=== PATIENT | female | born 1990 | race Caucasian/White ===

== ENCOUNTER 2016-04-08 18:57 | Emergency (ER) | payer OTHER ==
[~2016-04-08] VITALS: Ht 149.9 cm; Wt 72.3 kg
[2016-04-08 19:26] VITALS: BP 121/71; TEMP 36.9; Ht 149.9 cm; Wt 72.3 kg
[2016-04-08] MEDS ORDERED: ACET-1256 PO (19:41)
[2016-04-08] MEDS ORDERED: PRENTAB26 PO (19:41)
[2016-04-08] MEDS ORDERED: CEPH500C2 PO (20:11)
[2016-04-08] MEDS ORDERED: OXYC-57 PO (20:11)
--- NOTE | 2016-04-08 20:14 | EMERGENCY ROOM VISIT NOTE ---
ED Visit Note First contact with patient: 19:35 CHIEF COMPLAINT: Left upper dental pain 1 month HISTORY OF PRESENT ILLNESS: Patient is a 38 week 25-year-old white female who presents to the emergency department for evaluation of intractable left upper dental pain. She has a broken molar. His been giving her difficulty for about a month. She was seen by the dentist twice, and they were reluctant to pull it due to her . They treated her with amoxicillin twice a day for total of 14 days of antibiotic therapy. She states they will pull the tooth when she delivers. She states that it was "badly infected." She has been using acetaminophen for her pain, which helps until it wears off. She denies any drainage or discharge from the tooth at the present time. She states the pain radiates to her jaw and into her ear. She rates it a throbbing 10/10. She is a smoker. Denies facial swelling or fever. REVIEW OF SYSTEMS: Review of systems as per HPI. All other systems reviewed were negative. At least 6 systems reviewed. PMH: Electronic medical records are reviewed and summarized as above/below. See Problem List. SOCIAL HISTORY: Patient lives at home with family. Employed. She does smoke. PHYSICAL EXAM: Vital Signs: Reviewed Nurse's notes. CONSTITUTIONAL: Patient is a well-appearing gravid 25-year-old white female who is awake and alert and in no acute distress. Vital signs are stable. EARS: Tympanic membranes intact, not inflamed, have normal contour. External canals clear. MOUTH: Overall the patient has good dentition. The left upper molar in question has an obvious cavity, and is tender to percussion. There is slight swelling along the gumline although no focal abscess. Mucous membranes moist, no lesions, tongue and gums appear normal. THROAT: No pharyngeal injection, exudates, or tonsillar hypertrophy. Airway is patent. No trismus noted. FACE: No facial swelling is appreciated. No cellulitic changes. NECK: No lymphadenopathy. ED course: The patient was seen and assessed as above. Her old records are reviewed. Patient was reviewed in the [facility] Prescription Drug Monitoring Program, and there were no red flags noted. She has a molar which requires excision, however cannot be performed due to her advanced . She has an obvious cavity, she does not have any evidence for drainable abscess along the gumline, no facial cellulitis or evidence for Rudolph's angina. She was placed on a course of Keflex and was given Percocet to use for pain. She was advised that Percocet is category B, and a small amount of the medication could cross the placenta to the developing fetus. She understood the risks, and alternatives. She also was advised to not use more than a total of 3 g of acetaminophen in a 24 hour time period, including regular acetaminophen and the Percocet. Follow-up with OB and the dentist as scheduled. Problem List Medical Problems: (1) Cervical lymphadenopathy Status: Resolved (2) History of ear infections Status: Resolved Current/Historical Medications Scheduled Cephalexin Monohydrate (Keflex), 500 MG PO QID Multivit/Min/Iron/Fol Ac/Pren ( Vitamin), 1 TAB PO QPM Scheduled PRN Acetaminophen (Tylenol), 1,000 MG PO Q6 PRN for Pain Oxycodone/Acetaminophen 5MG/325MG (Percocet 5MG/325MG), 1-2 TABS PO Q4 PRN for Pain Allergies Coded Allergies: No Known Allergies (Unverified , 04/08/16) Vital Signs Date Time Temp Pulse Resp B/P Pulse Ox O2 Delivery O2 Flow Rate FiO2 04/08/16 20:35 82 18 98 Room Air 04/08/16 19:26 36.9 79 18 121/71 98 Room Air Medications Administered Medications (Trade) Dose Ordered Sig/Speedy Route Start Time Stop Time Status Last Admin Dose Admin Cephalexin Monohydrate (Keflex 500MG Home Pack) 1 homepack NOW ONCE PO 04/08/16 20:15 04/08/16 20:16 DC 04/08/16 20:34 1 HOMEPACK Oxycodone/ Acetaminophen (Percocet 5/ 325MG Home Pack) 1 homepack UD ONCE PO 04/08/16 20:15 04/08/16 20:16 DC 04/08/16 20:34 1 HOMEPACK Departure Information Impression Primary Impression: Periapical abscess Prescriptions Oxycodone/Acetaminophen 5MG/325MG (PERCOCET 5MG/325MG) Tab 1-2 TABS PO Q4 Y for Pain, #25 TAB For Initial Treatment Prov: Emily Connelly,PA 04/08/16 Cephalexin Monohydrate (KEFLEX) 500 Mg Cap 500 MG PO QID, #40 CAP Prov: Emily Connelly PA 04/08/16 Referrals No Doctor, Assigned (PCP) Patient Instructions A Signature Page, My [facility] Additional Instructions Percocet 5/325 mg: Take 1-2 pills every four hours for breakthrough pain. Avoid alcohol, operating machinery or dangerous equipment, working on ladders or roofs, DRIVING, or situations where being under the influence may be dangerous. It is recommended to use an [id number] stool softener such as Colace, 100mg twice daily while taking this medication to avoid constipation. Acetaminophen(Tylenol) may be used for fever or pain. Use 1000mg every six hours as needed. Do Not Exceed More Than 3000 Mg of Acetaminophen in 24 Hours. Cephalexin(Keflex) 500mg: Take one pill four times daily for 10 days for your dental infection. All antibiotics can cause diarrhea. If this occurs and you feel worse or it does not resolve in 1-2 days follow up with your doctor or return to the Emergency Department as this could be signs of serious underlying problems. Any medication can cause an allergic reaction, stop the pills immediately and return to the ER for rash, hives, breathing difficulties, or swelling. Saltwater gargles after meals and before bedtime. Soft foods. Followup with your dentist for definitive management. You may also follow up with your primary care physician for pain/care management until you can be seen by your dentist.
[2016-04-08] MEDS ORDERED: CEPHALEXIN 500MG HOME PACK 1 EA BTL PO ONE (20:15)
[2016-04-08] MEDS ORDERED: PERCOCET HOME PACK PO ONE (20:15)
[2016-04-08 20:35] VITALS: PULSE 82; O2SAT 98
== END 2016-04-08 20:35 | disposition home or self-care (01) ==
LOC: C.EDB 18:59 → C.EDD 20:35
DX: K04.7 Periapical abscess without sinus (principal); F17.210 Nicotine dependence, cigarettes, uncomplicated

== ENCOUNTER 2016-04-23 02:02 | Inpatient (IN) | payer OTHER ==
[~2016-04-23] VITALS: Ht 149.9 cm; Wt 70.9 kg
[~2016-04-23 02:02] MED LIST: ACET-1256 PO; CEPH500C2 PO; OXYC-57 PO; PRENTAB26 PO
[2016-04-23] MEDS ORDERED: IV FLUIDS COMPLETED PRN (03:30)
[2016-04-23] MEDS ORDERED: PRENTAB26 PO (04:44)
[2016-04-23 04:45] VITALS: Ht 149.9 cm; Wt 70.9 kg
[2016-04-23] MEDS ORDERED: LACTATED RINGER'S 1000ML 500 ML IV PRN ×2 (06:42→08:49)
[2016-04-23] MEDS ORDERED: LACTATED RINGER'S 1000ML 1,000 ML IV PRN (06:42)
[2016-04-23] MEDS ORDERED: OXYTOCIN 30 UNITS/500ML NSS IV PRN ×2 (06:45→12:00)
[2016-04-23 07:07] LABS: HEMATOCRIT 35.1 % (37-47); MEAN CELL VOLUME 94.6 fL (80-100); MEAN CORPUSCULAR HEMOGLOBIN 32.3 pg (25-34); MEAN CORPUSCULAR HGB CONC 34.2 g/dl (32-36); MEAN PLATELET VOLUME 9.8 fL (7.4-10.4); PLATELET COUNT 256 K/uL (130-400); RED BLOOD COUNT 3.71 M/uL (4.2-5.4); WHITE BLOOD COUNT 11.53 K/uL (4.8-10.8)
[2016-04-23] MEDS: LACTATED RINGER'S 1000ML 1,000 ML IV SCH ×2 (07:08→10:03)
[2016-04-23] MEDS ORDERED: RANI150T3 PO (07:39)
[2016-04-23] MEDS ORDERED: BUPIVACAINE 0.25% 30 ML VIAL ONE (08:03)
[2016-04-23] MEDS ORDERED: FENTANYL CITRATE INJ 50 MCG/1 ML 2 ML VIAL ONE (08:04)
[2016-04-23] MEDS ORDERED: EpHEDrine SULFATE INJ 50 MG/ML AMP ONE (08:04)
[2016-04-23] MEDS ORDERED: FENTANYL 2MCG/ML ROPIV 1.25MG/ML 100ML BAG EPI ONE (08:04)
--- NOTE | 2016-04-23 08:28 | Medical Student: [facility] ---
Med Student History & Physical Date of Service Apr 23, 2016. Chief Complaint Labor Check History of Present Illness Source: patient, clinic records This is 25 year-old female with GA 40 weeks 4 days presented this morning with frequent contractions every 3-5 minutes and lots of vaginal mucous discharge with streak of blood. movement is present. Pain (9/10) is associated with contractions. On exam, she is 4/80/-1. Her course of is uncomplicated so far. She is A+, GBS-, Rubella immune. She is a smoker. ROS: negative for MARTIN, fever, chills, SOB, chest pain, +heartburn OB History One uncomplicated vaginal delivery - [address] History LMP 07/17/2015 Menstrual cycle q 25 days Menarche 16yo Last pap 2012 - WNL Past Medical History Anemia with Chicken pox+ Yeast infection Past Surgical History Tonsillectomy and adenoidectomy Family History Fx of diabetes, HTN, high cholesterol Mother - labor, ovarian cysts. Social History Patient is single. She is a smoker. Denies drinking or illicit drug use. Smoking Status: Current Every Day Smoker Smokeless Tobacco Use: No Alcohol Use: none Drug Use: none Marital Status: single, in relationship Housing status: lives with family Occupational Status: unemployed Allergies Coded Allergies: No Known Allergies (Unverified , 04/23/16) Home Medications Multivit/Min/Iron/Fol Ac/Pren ( Vitamin), 1 TAB PO QPM Ranitidine Hcl (Zantac), 1 TAB PO BID Review of Systems Constitutional: No chills, No fever ENT: No hearing loss Respiratory: No cough, No shortness of breath Cardiovascular: No chest pain Abdomen: No nausea, No pain Genitourinary - Female: + vaginal bleeding, + vaginal discharge Neurologic: No memory loss Physical Exam General Appearance: WD/WN Head: normocephalic Eyes: normal inspection ENT: hearing grossly normal Neck: no adenopathy Respiratory/Chest: lungs clear, normal breath sounds, no respiratory distress Cardiovascular: regular rate, rhythm, no murmur Abdomen / GI: + pertinent finding (see HPI) Genitourinary - Female: + pertinent finding (see HPI) Extremities: no pedal edema Neurologic/Psych: alert, oriented x 3 Skin: no rash Lymphatic: no adenopathy Monitoring External Monitor: 8:00AM - HR 140s, moderate variabilities, accelerations Tocodynamometer: TOCO 7 Laboratory Results 04/23/16 06:58 Test 04/23/16 06:58 Red Blood Count 3.71 M/uL (4.2-5.4) Mean Corpuscular Volume 94.6 fL (80-100) Mean Corpuscular Hemoglobin 32.3 pg (25-34) Mean Corpuscular Hemoglobin Concent 34.2 g/dl (32-36) RDW Standard Deviation 46.9 fL (36.4-46.3) RDW Coefficient of Variation 13.6 % (11.5-14.5) Mean Platelet Volume 9.8 fL (7.4-10.4) Assessment and Plan 25 year-old female is in labor with frequent contractions q3-5min and vaginal discharge. Cervix exam at ~6:45AM shows 4/80/-1 Smoker during Blood type A+, GBS-, Rubella immune Labs - WNL for Plan Artificial ROM Pitocin given Pain - epidural anesthesia placement Continue monitor patient's vitals and assessment.
[2016-04-23] MEDS ORDERED: ONDANSETRON INJ 2 MG/ML 2 ML VIAL IV PRN (09:00)
[2016-04-23] MEDS ORDERED: NALBUPHINE HCL INJ 10 MG/ML AMP IV PRN (09:00)
[2016-04-23] MEDS ORDERED: NALOXONE HCL INJ 0.4 MG/1 ML VIAL/CARP IV PRN (09:00)
[2016-04-23] MEDS ORDERED: FENTANYL 2MCG/ML ROPIV 1.25MG/ML 100ML BAG EPI PRN (09:00)
[2016-04-23] MEDS ORDERED: DiphenhydrAMINE HCL 50 MG/ML VIAL IV PRN (09:00)
[2016-04-23] MEDS ORDERED: EpHEDrine SULFATE INJ 50 MG/ML AMP IV PRN (09:00)
[2016-04-23] MEDS ORDERED: RANITIDINE HCL 150 MG TAB PO ONE (09:15)
--- NOTE | 2016-04-23 09:15 | Medical Student: [facility] ---
Med Student Progress Note Date of Service Apr 23, 2016. Subjective Pt evaluation today including: conversation w/ patient Pain: no pain with epidural PO Intake: clear fluid/ice chips Voiding: no voiding problems Caridad Rowland is 25-year-old female GA of 40weeks-4days is currently in labor. She has no pain after the epidural. Exam done by Dr. Kendrick shows 5/100/- 2. Review of Systems Constitutional: No chills, No fever Respiratory: No cough, No shortness of breath Cardiac: + problem reported (heartburn), No chest pain Abdomen: No nausea, No pain Female : + vaginal discharge Objective Physical Exam General Appearance: WD/WN, no apparent distress ENT: hearing grossly normal Comments: Cervix exam done by Dr. Kendrick: 5/100/-2 Laboratory Results Last 24 Hours Test 04/23/16 06:58 White Blood Count 11.53 K/uL Red Blood Count 3.71 M/uL Hemoglobin 12.0 g/dL Hematocrit 35.1 % Mean Corpuscular Volume 94.6 fL Mean Corpuscular Hemoglobin 32.3 pg Mean Corpuscular Hemoglobin Concent 34.2 g/dl RDW Standard Deviation 46.9 fL RDW Coefficient of Variation 13.6 % Platelet Count 256 K/uL Mean Platelet Volume 9.8 fL Medications Current Inpatient Medications Medications (Trade) Dose Ordered Sig/Speedy Route Start Time Stop Time Status Last Admin Dose Admin Miscellaneous 1 ea 1 ea PRN PRN N/A 04/23/16 03:30 04/23/17 03:29 Lactated Ringer's 1,000 ml @ 125 mls/hr Q8H IV 04/23/16 06:42 04/25/16 06:41 04/23/16 07:08 125 MLS/HR Lactated Ringer's (Lr 1000ml) 1,000 ml @ 999 mls/hr Q1H1M PRN IV 04/23/16 06:42 05/23/16 06:41 Oxytocin 30 units 30 units UD PRN IV 04/23/16 06:45 05/23/16 06:44 04/23/16 07:10 30 UNITS Lactated Ringer's (Lr 1000ml) 500 ml @ 999 mls/hr Q31M PRN IV 04/23/16 06:42 05/23/16 06:41 Fentanyl/ Ropivacaine (Fentanyl 2MCG/ Ml/Ropivacaine 1.25MG/ML) 100 ml PRN PRN EPI 04/23/16 09:00 04/24/16 08:59 UNV Naloxone HCl 0.1 mg 0.1 mg UD PRN IV 04/23/16 09:00 04/24/16 08:59 UNV Lactated Ringer's (Lr 1000ml) 500 ml @ 999 mls/hr Q31M PRN IV 04/23/16 08:49 04/24/16 08:48 UNV Ephedrine Sulfate (EpHEDrine SULFATE INJ) 10 mg Q5M PRN IV 04/23/16 09:00 04/24/16 08:59 UNV Diphenhydramine HCl (Benadryl Inj) 25 mg Q6H PRN IV 04/23/16 09:00 04/24/16 08:59 UNV Nalbuphine HCl (Nubain Inj) 5 mg Q10M PRN IV 04/23/16 09:00 04/24/16 08:59 UNV Ondansetron HCl (Zofran Inj) 4 mg Q6H PRN IV 04/23/16 09:00 04/24/16 08:59 UNV Assessment and Plan Assessment and Plan: 25-year-old female GA 40weeks-4 days in labor assessment - FHR 140s, moderate variabilities, acceleration 15x15 - Category 1 - Reactive TOCO: 50s Plan Epidural placed Pitocin given Give Zantec for heartburn Continue monitor patient's vital signs and assessment Continued [facility] stay due to: other (Labor check)
[2016-04-23] MEDS ORDERED: SUPERCREAM 0.870 % 15GM JAR EXT PRN (12:00)
[2016-04-23] MEDS ORDERED: LANOLIN OINT EXT PRN ×2 (12:00)
[2016-04-23] MEDS ORDERED: ACETAMINOPHEN 325 MG TAB PO PRN (12:00)
[2016-04-23] MEDS ORDERED: ACETAMINOPHEN/CODEINE 300/30MG TAB PO PRN ×2 (12:00)
[2016-04-23] MEDS ORDERED: BENZOCAINE 20% AER SPR 82.5 GM CAN EXT PRN (12:00)
--- NOTE | 2016-04-23 12:06 | DELIVERY SUMMARY ---
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 Membranes were ruptured at 4 cm dilated for clear fluid. She received epidural analgesia and Pitocin augmentation of labor. She progressed to full dilation and +3 station. She pushed effectively through two contractions for delivery of a viable male . Mouth and nasopharynx were suctioned on the perineum. The rest of the infant delivered without difficulty and was placed on the mother's abdomen for further stimulation and attention. There was vigorous crying and the was moving all four limbs. The cord was clamped and cut. Cord blood was obtained. Placenta was expressed intact with a 3-vessel cord. There were superficial bilateral labial abrasions that were not bleeding and therefore not repaired. Estimated blood loss was 300 cc. Mother and were doing well after delivery. I attest to the content of the Intraoperative Record and any orders documented therein. Any exceptions are noted below. AURELIAD
--- NOTE | 2016-04-23 12:44 | Medical Student: [facility] ---
Medical Student Delivery Note Vaginal Delivery Note 1. at 40 weeks and 4 days 2. Blood type A+, GBS-, Rubella immune Procedure: 1. Spontaneous Vaginal Delivery Surgeon: Dr. Kendrick Member Services Representative: Negar Waddell [facility] EBL: 300mL Description: This is 25 year-old female presented to L&D early this morning with frequent contractions and mucous plug discharge. Membrane was artificially ruptured this morning by Dr. Hernández at 4+/10/-2. She received Pitocin augmentation of the uterus and epidural analgesia. Patient went to sleep and woke up a few hours later feeling the baby is coming out. The fetus presented right occipital posterior. Patient successfully delivered viable male with three contractions. Mouth and nasopharynx suction of the was done and the rest of the 's body was delivered without difficulty. Umbilical cord was clamped and cut by baby's father. Baby was then put on mother's abdomen for stimulation. Cord blood was obtained and sent for assessment. Placenta was delivered intact with 3 vessels. There were some mild labial abrasions. No lacerations were noted. Baby was attended by Pediatric team and handed back to mom for . Both mother and baby were doing well.
--- NOTE | 2016-04-23 13:10 | Anesthesia Procedure Note ---
Anesthesia Epidural Removal Nt Date & Time Apr 23, 2016 at 13:09 Vital Signs Pain Intensity: 0.0 Notes Mental Status: alert / awake / arousable, participated in evaluation Nausea / Vomiting: adequately controlled Pain: adequately controlled Airway Patency, RR, SpO2: stable & adequate BP & HR: stable & adequate Hydration State: stable & adequate Neuraxial Anesthesia: was administered, sensory block is resolved Anesthetic Complications: no major complications apparent, pt satisfied with anesthetic care Epidural: removed without complications, with tip intact
[2016-04-23 15:20] VITALS: BP 121/69; PULSE 93; TEMP 37.5
[2016-04-23] MEDS: IBUPROFEN 600 MG TAB PO PRN ×2 (16:21→21:29)
[2016-04-23 19:55] VITALS: BP 101/53; PULSE 79; TEMP 36.6
[2016-04-23] MEDS ORDERED: RANITIDINE HCL 150 MG TAB PO SCH (20:00)
[2016-04-23] MEDS: DOCUSATE SODIUM 100 MG CAP PO SCH (20:00)
[2016-04-23 23:15] VITALS: BP 114/61; PULSE 64; TEMP 37
[2016-04-24] MEDS: IBUPROFEN 600 MG TAB PO PRN ×3 (01:45→14:39)
[2016-04-24 04:03] VITALS: BP 92/49; PULSE 60; TEMP 36.6
[2016-04-24 06:32] LABS: HEMATOCRIT 35.3 % (37-47)
--- NOTE | 2016-04-24 06:36 | Progress Note ---
Subjective Apr 24, 2016. Subjective conversation w/ patient, physical exam Ambulation: ambulating normally Voiding: no voiding problems Passing Gas: Yes Diet Tolerance: Regular Diet Lochia: Small Feeding Type: Breast Feeding Pain: No pain reported Review of Systems Constitutional: No chills, No fever Respiratory: No cough, No shortness of breath Cardiac: No chest pain Breast: No breast pain Abdomen: No nausea, No pain, No vomiting Female : No dysuria Objective Vital Signs Date Time Temp Pulse Resp B/P Pulse Ox O2 Delivery O2 Flow Rate FiO2 04/24/16 04:03 36.6 60 18 92/49 Room Air 04/23/16 23:15 Room Air 04/23/16 23:15 37.0 64 18 114/61 Room Air 04/23/16 19:55 36.6 79 18 101/53 Room Air 04/23/16 15:20 37.5 93 16 121/69 Physical Exam General Appearance: WELL-APPEARING, WD/WN, NO APPARENT DISTRESS Respiratory/Chest: lungs clear, normal breath sounds Cardiovascular: regular rate, rhythm, no gallop, no murmur Abdomen: non tender, soft Fundus: Firm, Relation to Umbilicus (1cm below) Extremities: no calf tenderness Laboratory Results Last 24 Hours Test 04/23/16 06:58 04/24/16 06:05 White Blood Count 11.53 K/uL Red Blood Count 3.71 M/uL Hemoglobin 12.0 g/dL 11.8 g/dL Hematocrit 35.1 % 35.3 % Mean Corpuscular Volume 94.6 fL Mean Corpuscular Hemoglobin 32.3 pg Mean Corpuscular Hemoglobin Concent 34.2 g/dl RDW Standard Deviation 46.9 fL RDW Coefficient of Variation 13.6 % Platelet Count 256 K/uL Mean Platelet Volume 9.8 fL Medications Current Inpatient Medications Medications (Trade) Dose Ordered Sig/Speedy Route Start Time Stop Time Status Last Admin Dose Admin Miscellaneous (Iv Fluids Completed) 1 ea PRN PRN N/A 04/23/16 03:30 04/23/17 03:29 Ranitidine HCl (zANTac TAB) 150 mg BID PO 04/23/16 20:00 05/23/16 19:59 Oxytocin (Pitocin IV) 30 units UD PRN IV 04/23/16 12:00 05/23/16 11:59 Benzocaine (Dermoplast Aero Spr) 1 appln PRN PRN EXT 04/23/16 12:00 05/23/16 11:59 Cocaine HCl (Supercream 0.870% Cr) BID PRN EXT 04/23/16 12:00 05/07/16 11:59 Lanolin (Lanolin Oint) PRN PRN EXT 04/23/16 12:00 05/23/16 11:59 Prenat Multivit/ [place]/Iron/Folic Ac ( Vitamin Tab) 1 tab DAILY PO 04/24/16 08:00 05/24/16 07:59 Ibuprofen (Motrin Tab) 600 mg Q4H PRN PO 04/23/16 12:00 05/23/16 11:59 04/24/16 05:28 600 MG Acetaminophen (Tylenol Tab) 650 mg Q6H PRN PO 04/23/16 12:00 05/23/16 11:59 04/23/16 23:13 650 MG Acetaminophen/ Codeine Phosphate (Tylenol w/ Codeine #3 Tab) 1 tab Q4H PRN PO 04/23/16 12:00 05/23/16 11:59 Acetaminophen/ Codeine Phosphate (Tylenol w/ Codeine #3 Tab) 2 tab Q4H PRN PO 04/23/16 12:00 05/23/16 11:59 Bisacodyl (Dulcolax Tab) 5 mg 20 PO 04/24/16 20:00 04/24/16 20:01 Docusate Sodium (coLACE CAP) 100 mg BID PO 04/23/16 20:00 05/23/16 19:59 04/23/16 20:00 100 MG Assessment and Plan Problem List Medical Problems: (1) Lymphadenopathy of right cervical region Status: Acute (2) Periapical abscess Status: Acute Post- Day#: 1 Continue Routine Care: Resident Physician Supervision Note: I interviewed and examined the patient. Discussed with Dr. Spencer and agree with findings and plan as documented in the note. Any exceptions or clarifications are listed here: [None] Documented By: Margie Kendrick - Vital Signs reviewed and WNL (temp max 36.6) - Blood Type: A+, GBS- , Rubella Immune - Patient doing well clinically - Encourage Ambulation today - No pain reported this morning - Tolerating PO Diet Well - Discharge today
--- NOTE | 2016-04-24 06:36 | Medical Student: [facility] ---
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 Subjective conversation w/ patient, physical exam, lab review Ambulation: ambulating normally Voiding: no voiding problems Passing Gas: Yes Diet Tolerance: Regular Diet Lochia: Small Feeding Type: Breast Feeding Pain: cramping and contractions in lower abdomen Review of Systems Constitutional: No chills, No fever Respiratory: No shortness of breath Cardiac: No chest pain Abdomen: + pain Female : + see HPI Objective Vital Signs Date Time Temp Pulse Resp B/P Pulse Ox O2 Delivery O2 Flow Rate FiO2 04/24/16 04:03 36.6 60 18 92/49 Room Air 04/23/16 23:15 Room Air 04/23/16 23:15 37.0 64 18 114/61 Room Air 04/23/16 19:55 36.6 79 18 101/53 Room Air 04/23/16 15:20 37.5 93 16 121/69 Physical Exam General Appearance: WELL-APPEARING, NO APPARENT DISTRESS Respiratory/Chest: lungs clear, normal breath sounds Cardiovascular: regular rate, rhythm, no murmur Abdomen: non tender, soft Fundus: Firm, Relation to Umbilicus (1cm below umbilicus) Extremities: normal range of motion, no calf tenderness Laboratory Results Last 24 Hours Test 04/23/16 06:58 04/24/16 06:05 White Blood Count 11.53 K/uL Red Blood Count 3.71 M/uL Hemoglobin 12.0 g/dL Hematocrit 35.1 % Mean Corpuscular Volume 94.6 fL Mean Corpuscular Hemoglobin 32.3 pg Mean Corpuscular Hemoglobin Concent 34.2 g/dl RDW Standard Deviation 46.9 fL RDW Coefficient of Variation 13.6 % Platelet Count 256 K/uL Mean Platelet Volume 9.8 fL Medications Current Inpatient Medications Medications (Trade) Dose Ordered Sig/Speedy Route Start Time Stop Time Status Last Admin Dose Admin Miscellaneous (Iv Fluids Completed) 1 ea PRN PRN N/A 04/23/16 03:30 04/23/17 03:29 Ranitidine HCl (zANTac TAB) 150 mg BID PO 04/23/16 20:00 05/23/16 19:59 Oxytocin (Pitocin IV) 30 units UD PRN IV 04/23/16 12:00 05/23/16 11:59 Benzocaine (Dermoplast Aero Spr) 1 appln PRN PRN EXT 04/23/16 12:00 05/23/16 11:59 Cocaine HCl (Supercream 0.870% Cr) BID PRN EXT 04/23/16 12:00 05/07/16 11:59 Lanolin (Lanolin Oint) PRN PRN EXT 04/23/16 12:00 05/23/16 11:59 Prenat Multivit/ [employer]/Iron/Folic Ac ( Vitamin Tab) 1 tab DAILY PO 04/24/16 08:00 05/24/16 07:59 Ibuprofen (Motrin Tab) 600 mg Q4H PRN PO 04/23/16 12:00 05/23/16 11:59 04/24/16 05:28 600 MG Acetaminophen (Tylenol Tab) 650 mg Q6H PRN PO 04/23/16 12:00 05/23/16 11:59 04/23/16 23:13 650 MG Acetaminophen/ Codeine Phosphate (Tylenol w/ Codeine #3 Tab) 1 tab Q4H PRN PO 04/23/16 12:00 05/23/16 11:59 Acetaminophen/ Codeine Phosphate (Tylenol w/ Codeine #3 Tab) 2 tab Q4H PRN PO 04/23/16 12:00 05/23/16 11:59 Bisacodyl (Dulcolax Tab) 5 mg 20 PO 04/24/16 20:00 04/24/16 20:01 Docusate Sodium (coLACE CAP) 100 mg BID PO 04/23/16 20:00 05/23/16 19:59 04/23/16 20:00 100 MG Assessment and Plan Post- Day Number: 1 Continue Routine Care: 25 year-old female delivered vaginally yesterday Blood type A+, GBS-, Rubella immune Vitals are stable. Still cramping/contraction pain and some back pain. Plan: Regular diet PO Encourage ambulation Discharge today
--- NOTE | 2016-04-24 06:37 | Discharge Instructions ---
Discharge Instructions Admission Reason for Admission: Labor Check Discharge Discharge Diagnosis / Problem: Vaginal Delivery Discharge Goals Goal(s): Routine recovery after surgery Medications Continue Dispensed Medications: supercream, dermaplast, tucks, lansinoh Activity Recommendations Activity Limitations: per Instructions/Follow-up section . Instructions / Follow-Up Instructions / Follow-Up ACTIVITY RECOMMENDATIONS: * Gradual return to full activity over the next 2-3 weeks. * No lifting - nothing heavier than baby over the next 2-3 weeks. * Do not engage in vigorous exercise, sexual activity or sports until cleared by your physician. * Do not drive or operate any motorized equipment until cleared by your physician. * You may shower/bathe daily. MEDICATIONS: For discomfort or pain, you may use Acetaminophen (Tylenol), Ibuprofen (Advil), or Naproxen (Aleve) following the package directions. For constipation you may use Colace following the package directions. BREAST CARE: If you are not breast feeding: * Wear a supportive bra 24 hours a day for one to two weeks. * Avoid stimulating your breasts and nipples as much as possible during the first few weeks after delivery. * When taking a shower, have the warm water hit your back, not breasts. * When your breasts feel full, apply ice packs. Usually three to four times a day helps ease the discomfort. * Take a mild pain medication (Tylenol / Motrin) when you are uncomfortable. If breast feeding: * Use breast milk to lubricate nipples. Lansinoh cream may be used for sore nipples. You do not need to remove cream prior to breast feeding. If using a different brand of cream, check the label for directions regarding removal of cream prior to nursing. * Wear a supportive bra. * If having problems with breasts or breast feeding, call a railroad design consultant or your health care provider. EPISIOTOMY CARE: After delivery, if you have an episiotomy (stitches), the following steps will ease discomfort and aid healing. * For the first 24 hours after delivery, place ice packs next to your episiotomy to help reduce swelling. * After the first 24 hour-period, sitz baths, either portable or in the tub, are suggested. A shower with a shower arm sprayed over the episiotomy may be comforting. * Guera care should be done after each voiding and bowel movement. Squirt warm water from a plastic bottle over the perineum (region of the body between the anus and urinary opening) and pat dry. * Use Dermoplast to ease discomfort. Shake container. [place] directly over the episiotomy. Place a Tucks on a clean sanitary pad next to your episiotomy. SPECIAL CARE INSTRUCTIONS: When you are discharged from the hospital, it is important for you to follow the instructions listed below: * During the first week at home, you should be able to care for yourself and your baby. In addition, the usual light household activities are encouraged. * Limit your activities to the way you feel. Do not try to clean the house or move furniture. Be sensible. * If you actively engage in sports and have done so up until the time of your delivery, you may resume these activities as soon as you feel able. This may take up to one month or even longer. Use good judgment. * Continue to take your vitamins for at least six weeks after the of your baby. * Your diet need not be limited unless you were on a special diet before your delivery. Breast-feeding mothers need around 2500 calories per day and at least 64-80 ounces of fluid per day (8 to 10 glasses). * You should eat foods from the four major food groups. Crash diets or fad diets are to be avoided. Eating lean meats, fresh fruits and vegetables, low-fat dairy products, high fiber foods and a regular exercise program, will help you get back to your pre- weight without putting your health at risk. * Constipation is sometimes a problem after delivery. Take a mild laxative as needed. If breast feeding, Milk of Magnesia is acceptable to use. You may use a suppository or Fleets enema if no episiotomy. * A daily shower or tub bath is suggested. Be sure to thoroughly and gently dry the perineum. * A bloody vaginal discharge will usually continue until around four weeks post . A small amount of bleeding may continue for as long as six weeks. Vaginal discharge changes from the bright red bleeding after delivery to pink then brownish and finally yellowish-pink before becoming white and disappearing. * Bleeding may increase with activity. Your first period may come in 4-8 weeks. If you are breast feeding, your period may be delayed even longer. * [place] (sex) can begin whenever both you and your partner feel comfortable and do not have any form of genital infection. It is recommended that you wait at least six weeks for internal and external healing to occur. If you have questions, please talk to your health care practitioner. A condom should be used to prevent infection and . * Foreplay, gentle intercourse and lubrication is very important the first several times to prevent pain. A water-based lubricant such as K-Y jelly or Astroglide may be used. * If you have RH negative blood and your baby is RH positive, you will receive RHOGAM by injection prior to discharge. The nurse will give you a card to keep with you that has the date and place that you received RHOGAM after delivery. * During your care, you had a Rubella screen done to check for the presence of rubella antibodies in your blood. If your test was negative, you will receive a Rubella vaccine prior to discharge. This vaccine may cause a fever, soreness at the injection site and flu-like symptoms. If these symptoms persist, notify your health care practitioner. is not advised for one month after a Rubella vaccine. * Verbalizes understanding of car seat law as reviewed with patient nursing. * Car Seat hand-out given and reviewed with patient by nursing. * Shaken baby information reviewed with patient by nursing. Call you doctor if: * Heavy bleeding (saturating several pads an hour) or passing clots the size of your fist. * A fever >101 degrees F (38.3 degrees C) on two occasions four hours apart and /or chills. * Unusual pain in the pelvic or vaginal areas. * "Baby Blues" lasting longer than two weeks. If you have any questions or concerns, call your health care practitioner at . FOLLOW UP VISIT: * Please call the office at to schedule a 6 week examination. It is important you keep this appointment. It is important for you to make arrangements for either yearly or twice yearly check-ups thereafter. Current Hospital Diet Patient's current hospital diet: Regular OB Diet Discharge Diet Recommended Diet: Regular Diet Pending Studies Studies pending at discharge: no Medical Emergencies . Who to Call and When: Medical Emergencies: If at any time you feel your situation is an emergency, please call 911 immediately. . Non-Emergent Contact Non-Emergency issues call your: Cyl[employer] Machine Operator . . "Provider Documentation" section prepared by Michael Spencer. VTE Core Measure Inpt VTE Proph given/why not?: Treatment not indicated
[2016-04-24 07:35] VITALS: BP 105/68; PULSE 75; TEMP 36.4; O2SAT 98
[2016-04-24] MEDS ORDERED: PRENATAL VITAMIN TAB PO SCH (08:00)
[2016-04-24] MEDS: DOCUSATE SODIUM 100 MG CAP PO SCH (09:01)
[2016-04-24 16:00] VITALS: BP 107/64; PULSE 62; TEMP 36.7
[2016-04-24 17:16] VITALS: BP_DIAS 64; PULSE 62; TEMP 36.7
[2016-04-24] MEDS ORDERED: BISACODYL 5 MG TABEC PO SCH (20:00)
== END 2016-04-24 19:30 | disposition home or self-care (01) | DRG 775 ==
LOC: C.OPB 02:02 → C.LD 02:02 → C.OPB 03:08 → OBSVTOIN 06:43 → C.OBG 16:00
PROVIDERS: ADMIT Obstetrics & Gynecology; ATTEND Obstetrics & Gynecology
PROC: 10E0XZZ Delivery of Products of Conception, External Approach (ICD-10-PCS; principal; 2016-04-23)
PROC: 10907ZC Drainage of Amniotic Fluid, Therapeutic from Products of Conception, Via Natural or Artificial Opening (ICD-10-PCS; 2016-04-23)
DX: O48.0 Post-term pregnancy (principal); Z37.0 Single live birth; O99.02 Anemia complicating childbirth; Z3A.40 40 weeks gestation of pregnancy; O71.89 Other specified obstetric trauma; Z83.3 Family history of diabetes mellitus; Z82.49 Family history of ischemic heart disease and other diseases of the circulatory system; Z84.89 Family history of other specified conditions; Z83.49 Family history of other endocrine, nutritional and metabolic diseases

== ENCOUNTER → 2017-02-22 | Outpatient (CLI) | payer OTHER ==
[~2017-02-22] MED LIST changes: -ACET-1256 PO; -CEPH500C2 PO; -OXYC-57 PO
[2017-02-24 13:55] LABS: CHLAMYDIA TRACH RNA*** NOT DETECTED (NOT DETECTED); GC (NEIS GONORRHOEAE)RNA** NOT DETECTED (NOT DETECTED)
== END | disposition home or self-care (01) ==
LOC: C.LABSPEC 15:51
PROVIDERS: ATTEND Physician Assistant
DX: Z01.419 Encounter for gynecological examination (general) (routine) without abnormal findings (principal)

== ENCOUNTER → 2017-02-22 | Outpatient (CLI) | payer OTHER | END | disposition home or self-care (01) | LOC: C.PAPS 16:36 | PROVIDERS: ATTEND Physician Assistant | DX: Z01.419 Encounter for gynecological examination (general) (routine) without abnormal findings (principal) ==

== ENCOUNTER → 2017-05-24 | Outpatient (CLI) | payer OTHER | END | disposition home or self-care (01) | LOC: C.LABSPEC 10:56 | PROVIDERS: ATTEND Obstetrics & Gynecology | DX: N76.0 Acute vaginitis (principal) ==

== ENCOUNTER → 2017-06-10 | Outpatient (CLI) | payer OTHER | END | disposition home or self-care (01) | LOC: C.LABSPEC 13:43 | PROVIDERS: ATTEND Physician Assistant | DX: Z30.430 Encounter for insertion of intrauterine contraceptive device (principal) ==